=== PATIENT | male | born 1955 | race Two or more races ===

== ENCOUNTER → 2020-07-25 | Outpatient (CLI) | payer OTHER ==
[2020-07-25 08:59] LABS: Albumin 3.9 g/dL (3.4-5.0); Potassium 4.1 mmol/L (3.5-5.1)
[2020-07-25 09:06] LABS: BUN/Creatinine Ratio 9.6; Bilirubin, Total 0.9 mg/dL (0.2-1.0); Total Protein 7.4 g/dL (6.4-8.2)
== END | disposition home or self-care (01) ==
LOC: LAB 07:34
PROVIDERS: ATTEND Internal Medicine
DX: Z12.11 Encounter for screening for malignant neoplasm of colon (principal); I10 Essential (primary) hypertension; E78.5 Hyperlipidemia, unspecified; C61 Malignant neoplasm of prostate
CPT/HCPCS: 36415; 80053; 80061; 83036; 84153